=== PATIENT | female | born 1955 | race Caucasian/White ===

== ENCOUNTER → 2020-05-11 11:22 | Outpatient (CLI) | payer OTHER, SELFPAY ==
--- NOTE | ~2020-05-11 | MM_ITS ---
EXAMINATION: MM screening [facility] BI w shanda HISTORY: Screening TECHNIQUE: Craniocaudal and mediolateral oblique 3-D tomosynthesis images were obtained and synthetic 2-D images were generated. CAD analysis was submitted and interpreted. COMPARISON: 02/15/2019 BREAST PARENCHYMAL COMPOSITION: Breast composed of scattered areas of fibroglandular density FINDINGS: . Bilateral breast asymmetries are stable. There is no evidence of suspicious mass, calcifi cation, or architectural distortion to suggest malignancy in either breast. There has been no suspici ous interval change. IMPRESSION: 1. No mammographic evidence of malignancy. 2. Recommend routine screening mammography in one year. BI-RADS Category 2: Benign finding(s). Reviewed, dictated and finalized at location A.
== END ==
PROVIDERS: Visit Provider Nurse Practitioner
DX: Z12.31 Encounter for screening mammogram for malignant neoplasm of breast (principal)
CPT/HCPCS: 77063; 77067

== ENCOUNTER 2020-05-11 16:03 | Outpatient (CLI) | payer OTHER, SELFPAY | END 2020-05-11 16:04 | disposition home or self-care (01) | LOC: ANHCOVIDVC 16:03 | DX: Z23 Encounter for immunization (principal) | CPT/HCPCS: 0001A; 91300 ==

== ENCOUNTER 2020-06-01 16:05 | Outpatient (CLI) | payer OTHER, SELFPAY | END 2020-06-01 16:06 | disposition home or self-care (01) | LOC: ANHCOVIDVC 16:05 | DX: Z23 Encounter for immunization (principal) | CPT/HCPCS: 0002A; 91300 ==

== ENCOUNTER → 2020-12-25 02:41 | Outpatient (CLI) | payer OTHER, MEDICARE, SELFPAY ==
[2020-12-25 17:01] LABS: SARS-CoV-2 RNA PCR Negative
== END ==
PROVIDERS: PCP Internal Medicine; Visit Provider Nurse Practitioner
DX: R68.89 Other general symptoms and signs (principal); Z20.822 Contact with and (suspected) exposure to COVID-19
CPT/HCPCS: C9803; U0003; U0005

== ENCOUNTER 2021-01-27 14:30 | Outpatient (RCR) | payer OTHER, MEDICARE, SELFPAY ==
[2020-12-03 11:11] VITALS: BMI 34.4
== END 2021-02-01 10:46 | disposition home or self-care (01) ==
LOC: ANHDMC 14:30
PROVIDERS: PCP Internal Medicine; Visit Provider Internal Medicine
DX: E11.65 Type 2 diabetes mellitus with hyperglycemia (principal); Z71.3 Dietary counseling and surveillance; Z71.89 Other specified counseling
CPT/HCPCS: 97804; 99199; G0108; G0109

== ENCOUNTER 2021-04-08 07:13 | Outpatient (CLI) | payer OTHER, MEDICARE, SELFPAY ==
--- NOTE | ~2021-04-08 | US_ITS ---
EXAMINATION: US abdomen limited EXAM DATE: 04/08/2021 08:14 INDICATION: R74.8 - Abnormal levels of other serum enzymes . TECHNIQUE: Multiple grayscale and Doppler images of the abdomen right upper quadrant were obtained (b y a technologist who performed the scan) and subsequently reviewed. Comparison is made to prior exami nation from 03/16/2018. FINDINGS: The pancreatic head and body are normal in appearance. The pancreatic tail is not visualized. The l iver has normal echogenicity and contour. There are no focal liver lesions identified. There is no evidence of intrahepatic biliary duct dilation. Portal venous flow was seen in the hepatopedal, nor mal direction and has normal Doppler waveform. No right-sided hydronephrosis. Common bile duct measures 5 mm, which is normal. The gallbladder wall is normal in thickness, with ex pected amount of distention. No sonographic evidence of pericholecystic fluid. There is echogenic d ebris within dependent aspect of gallbladder. Technologist performing exam reports patient did not d emonstrate sonographic Meeks's sign. Please note that this sign is less reliable in patients who altamirano ve received pain medication. IMPRESSION: 1. Small amount of gallbladder debris. Reviewed, dictated and finalized at location B. ORT COORDINATOR
== END 2021-04-08 07:14 | disposition home or self-care (01) ==
LOC: ANHIMG 07:18
PROVIDERS: PCP Internal Medicine; Visit Provider Nurse Practitioner
DX: R74.8 Abnormal levels of other serum enzymes (principal)
CPT/HCPCS: 76705

== ENCOUNTER 2021-04-26 09:13 | Outpatient (RCR) | payer OTHER, MEDICARE, SELFPAY | END 2021-04-26 10:17 | disposition home or self-care (01) | LOC: ANHDMC 09:13 | PROVIDERS: PCP Internal Medicine; Visit Provider Internal Medicine | DX: E11.65 Type 2 diabetes mellitus with hyperglycemia (principal); Z71.89 Other specified counseling | CPT/HCPCS: G0108 ==

== ENCOUNTER → 2021-05-13 09:56 | Outpatient (CLI) | payer OTHER, MEDICARE, SELFPAY ==
--- NOTE | ~2021-05-13 | MM_ITS ---
EXAMINATION: MM screening [facility] BI w shanda HISTORY: Screening mammogram, family history of breast cancer in her sister. TECHNIQUE: Craniocaudal and mediolateral oblique 3-D tomosynthesis images were obtained and synthetic 2-D images were generated. CAD analysis was submitted and interpreted. COMPARISON: 05/11/2020, 02/15/2019 BREAST PARENCHYMAL COMPOSITION: There are scattered areas of fibroglandular density. FINDINGS: There is no suspicious mass, calcification, or architectural distortion to suggest malignan cy in either breast. There has been no suspicious interval change. IMPRESSION: 1. No mammographic evidence of malignancy. 2. Recommend routine screening mammography in one year. BI-RADS Category 1: Negative Reviewed, dictated and finalized at location A.
--- NOTE | ~2021-05-13 | DEXA_ITS ---
Bone Density Report Name: NAHOMY LOZADA Age: 65 Sex: Female Ethnicity: White Date of : 1955 Indication: osteopenia; monitoring treatment; parental hip fracture; height loss; hysterectomy; postmenopausal Referring Provider: Cesar, Annette Study: Bone densitometry was performed. Exam Date: May 13, 2021 Accession number: [id number] Bone Density: Region BMD T-score Z-score Classification AP Spine (L1-L4) 0.870 -1.6 0.3 Osteopenia Femoral Neck (Left) 0.663 -1.7 -0.1 Osteopenia Total Hip (Left) 0.732 -1.7 -0.4 Osteopenia Femoral Neck (Right) 0.675 -1.6 0.0 Osteopenia Total Hip (Right) 0.751 -1.6 -0.2 Osteopenia Total Hip Mean 0.742 -1.7 -0.3 Osteopenia World Health Organization criteria for BMD impression classify patients as: Normal (T-score at or above -1.0), Osteopenia (T-score between -1.0 and -2.5), or Osteoporosis (T-score at or below -2.5). 10-year Fracture Risk: FRAX not reported because: Treated for osteoporosis Previous Exams: Region Exam Age BMD T-score BMD Change BMD Change Date g/cm2 vs Baseline vs Previous AP Spine(L1-L4) 05/13/2021 65 0.870 -1.6 -0.002 -0.002 02/15/2019 63 0.871 -1.6 Total Hip(Left) 05/13/2021 65 0.732 -1.7 -0.055* -0.055* 02/15/2019 63 0.787 -1.3 Total Hip(Right) 05/13/2021 65 0.751 -1.6 0.014 0.014 02/15/2019 63 0.738 -1.7 *Denotes significance at 95% confidence level, LSC for AP Spine = 0.022 g/cm2, LSC for Total Hip = 0.027 g/cm2 Clinical Information Provided by Patient: Parent has had a hip fracture Is being treated for osteoporosis Has used the following medications: Boniva (i.e. ibandronate), Vitamin D, Calcium, MULTIVITAMIN Has the following medical conditions: Hysterectomy Patient maximum height was 62.0 Menopause Age: 47 Drinks caffeinated beverages Onset of menses at age 10 Number of children 5 Impression: The patient has low bone mass, based on the Left Total Hip T-score. The patient has risk factors, including: parental hip fracture. The BMD for the Total Hip(Left) decreased, changing by -0.055 since the last DXA exam. Discussion: SIGNIFICANT BONE LOSS OBSERVED. Adherence to therapy (including calcium and vitamin D intake) should be assessed. If compliance is not a factor, review management and exclusion of secondary causes of bone loss. It is important to ask patients whether they are taking their medications and to e
== END ==
PROVIDERS: PCP Internal Medicine; Visit Provider Nurse Practitioner
DX: Z12.31 Encounter for screening mammogram for malignant neoplasm of breast (principal); M85.88 Other specified disorders of bone density and structure, other site; M85.852 Other specified disorders of bone density and structure, left thigh; M85.851 Other specified disorders of bone density and structure, right thigh
CPT/HCPCS: 77063; 77067; 77080

== ENCOUNTER 2021-06-10 08:34 | Outpatient (CLI) | payer OTHER, MEDICARE, SELFPAY ==
[2021-06-01 15:43] VITALS: BMI 31.2
--- NOTE | 2021-06-01 15:49 | PC.NURSE ---
Pre Radiology instructions Report to the Outpatient Waiting Room, entrance under the green pavilion located off [facility], at time __0830 on date __06/10/21 . Procedure Time: _1030 . One visitor will be allowed to accompany the patient into the hospital. The visitor will be instructed to remain with patient at all times or leave the building. We will allow the visitor to come back to the postoperative area when patient is ready. You and your visitor will be asked a series of questions to screen for COVID 19 for your protection. A mask is required within the hospital. Pre-procedure COVID Testing Requirements: No COVID Test needed if: (proof is required; if not received patient will have Rapid Test prior to entry)- Patient has received COVID Vaccine at least 14 days prior to procedure date or- Patient has positive COVID test result within last 90 days of procedure date. COVID Test needed if above criteria is not met If not COVID vaccinated a COVID test must be conducted within 72 hours of surgery and patient is asked to isolate self from time of testing until procedure. You will go to the [facility] for your COVID testing. The [facility] is located at the corner of [address] [facility]. You will only be called if COVID results are positive and your surgeon may reschedule your elective procedure date Patients are to have no food or drink 6 hours prior to procedure time/0430 Driving will be restricted after the procedure, you must have a person to drive you home. Labs will be drawn in preop area and once reviewed, you will be taken to radiology area for procedure. When the procedure is completed, you will be taken to outpatient where you will be monitored for several hours. You may have one visitor in this area. Other than holding anti-coagulants, patient may take other medication(s) as scheduled. Prior to your appointment date patients are instructed to hold anti-coagulants after discussing with ordering provider to stop. If unable to discontinue anti-coagulants please notify radiologist. No aspirin or warfarin (Coumadin) for 7 days prior to the procedure. No clopidogrel (Plavix), ticagrelor (Brilinta), prasugrel (Effient) or dabigatran (Pradaxa) for 5 days prior to the procedure. No rivaroxaban (Xarelto), apixaban (Eliquis), dipyridamole (Aggrenox or Persantine) or cilostazol (Pletal) for 2 days prior to the procedure. Medications to discontinue per physician: ____NONE Date to take last dose: Please leave all valuables, including medications, at home the day of procedure. The hospital will not accept responsibility for valuables. Wear comfortable, loose fitting clothing. Follow any additional instructions given to you from ordering provider. Telephone instructions given to __PATIENT and asked if any additional questions and then verbalized understanding. Patient advised to call scheduling provider office or registration scheduling [phone] if any additional questions.
[2021-06-10] VITALS (11 sets, daily range): BP systolic 112–131; BP diastolic 53–69; PULSE 62–81; RESP 16–20; TEMP 36.5; O2SAT 93–97
--- NOTE | ~2021-06-10 | US_ITS ---
EXAMINATION: US biopsy liver DATE: 06/10/2021 11:40 INDICATION: Abnormal levels of other serum enzymes. TECHNIQUE: The procedure including the risks, benefits, and alternatives was discussed with the patie nt. Risks discussed included bleeding and infection. The patient understood the risks and agreed to p roceed. The skin overlying the left hepatic lobe was prepped and draped in usual sterile fashion. An esthetic was administered with 1% lidocaine subcutaneously. An 18 gauge core biopsy needle was then used to obtain 3 core biopsy specimens under continuous sonographic guidance. The entry site was manuel andres and dressed. There were no immediate complications. FINDINGS: Ultrasound images demonstrate the needle in left hepatic lobe. IMPRESSION: 1. Ultrasound-guided random core needle biopsy of the liver. Reviewed, dictated and finalized at location A.
[2021-06-10 09:55] LABS: Prothrombin Time 12.8 Seconds (11.1-14.7)
== END 2021-06-10 15:00 | disposition home or self-care (01) ==
PROVIDERS: PCP Internal Medicine; Referring Provider Nurse Practitioner Family; Visit Provider Radiology Diagnostic Radiology
PROC: BF45ZZZ Ultrasonography of Liver (ICD-10-PCS; CPT 47000; principal; 2021-06-10 10:30)
DX: R74.8 Abnormal levels of other serum enzymes (principal); R76.8 Other specified abnormal immunological findings in serum
CPT/HCPCS: 36415; 47000; 76942; 85610; 88307; 88312; 88313

== ENCOUNTER 2021-07-07 00:32 | Day surgery (SDC) | payer OTHER, MEDICARE, SELFPAY ==
[2021-06-17 14:37] VITALS: BMI 31.2
[2021-07-07 08:21] LABS: Glucose Point of Care 118 mg/dl (65-105)
[2021-07-07 08:23] VITALS: BP 142/85; PULSE 109; RESP 16; TEMP 36.2; O2SAT 98
[2021-07-07] MEDS: LACTATED RINGERS 1,000 ML 150 ML IV CONT (08:28)
--- NOTE | 2021-07-07 09:20 | WPDANESEPPF ---
Anes - Initial Pre Proc Eval Procedure: Operation Date: 07/07/21 09:30 Proposed Procedures p Screening Colonoscopy - Wil Weir MD Date/Time: 07/07/21 09:20 Surgeon: Wil Weir MD Pre Op Diagnosis: family hx of colon ca Patient Data Age: 66 Gender: F Height: 1.55 m Weight: 72 kg Last Vital Signs Temp 97.2 F L 07/07/21 08:23 Pulse 109 H 07/07/21 08:23 Resp 16 07/07/21 08:23 BP 142/85 H 07/07/21 08:23 Pulse Ox 98 07/07/21 08:23 Allergies Allergy/AdvReac Type Severity Reaction Status Date / Time No Known Allergies Allergy Mild Verified 07/07/21 08:22 Home Medications Medication Instructions Recorded Confirmed Type multivitamin 1 tablet PO DAILY 03/19/20 07/07/21 History blood sugar diagnostic #100 ea 12/02/20 05/14/21 Rx lancets 30 gauge #100 ea 12/02/20 05/14/21 Rx ezetimibe 10 mg tablet 10 mg PO DAILY #90 tablet 12/22/20 07/07/21 Rx cholecalciferol (vitamin D3) 1,250 1,250 mcg PO WEEKLY 03/30/21 07/07/21 History mcg (50,000 unit) tablet calcium carbonate-vitamin D3 1 tablet PO DAILY 06/01/21 07/07/21 History [Calcium + D] ibandronate [Boniva] 150 mg PO MONTHLY 06/01/21 07/07/21 History lisinopril 2.5 mg PO QAM 06/01/21 07/07/21 History metoprolol succinate 25 mg PO QAM 06/01/21 07/07/21 History Laboratory Tests 07/07/21 08:19 POC Capillary Glucose 118 mg/dl H mg/dl (65-105) Patient hx anesthesia problems: none Family hx anesthesia problems: none Results Review: All pre-operative results and documents have been reviewed as part of the pre-operative evaluation. [facility] Past Medical History Medical History (Updated 06/23/21 @ 16:25 by Falguni Tao, WEATHERIZATION AND HOUSING INSPECTOR-C) Dyslipidemia Elevated antinuclear antibody (SISI) level Essential hypertension Hypersomnia Palpitations with regular cardiac rhythm Takotsubo cardiomyopathy Surgical History Surgical History Hx of hysterectomy 2004 Family History Family History Father Family history of Alzheimer's disease Cancer Social History Social History Smoking packs per day: 1 Smoking cigarettes per day: 20.0 Years smoked: 22 Smoking pack-years: 22.00 Smoking status: Former smoker Tobacco type: cigarettes Alcohol intake: current Drinks per week: 1 Alcohol use details: occasional wine or ani Substance use: never Substance use type: does not use Living arrangements: with family Additional occupation/education comments: Works at [employer] Gender identity (if verbalized by the patient): Female Spiritual care concerns: No Anes - Eval Final PreProcedure Day of Procedure 07/07/21 09:20 Patient weight: obese Heart: regular rate and rhythm Lungs: clear to auscultation Airway: Mallampati scale class II Neurological: alert and oriented Last oral intake: >/= 8 hours ASA classification: III Emergent: no Anesthetic plan: proceed Anesthesia type and monitoring: general GIVS and standard monitoring Results Review: All pre-operative results and documents have been reviewed as part of the pre-operative evaluation. Informed Consent: The patient's anesthetic plan and its attendant risks and benefits were discussed with the patient/family/POA. Questions were solicited and answers provided to the satisfaction of the patient/family/POA.
--- NOTE | 2021-07-07 09:23 | PM.HPGS ---
History of Present Illness History of Present Illness Consent: Risks, benefits, and alternatives have been discussed and questions answered. Patient agrees to proceed with procedure. Chief complaint: family hx of colon ca Narrative: Julienne Davis is a 66 year old female here for first colonoscopy, father had colon cancer Review of Systems Constitutional: Constitutional: Denies headache(s) and Denies weakness Eyes: Eyes: Denies blurry vision ENT: Reports Normal hearing present, Denies headache(s) and Denies neck pain Cardiovascular: Cardiovascular: Denies chest pain and Denies dyspnea Respiratory: Respiratory: Denies dyspnea Gastrointestinal: Gastrointestinal: Reports no additional gastrointestinal complaints Genitourinary: Genitourinary: Denies dysuria Musculoskeletal: Musculoskeletal: Denies neck pain Integumentary/Breasts: Skin/Breast: Denies dry skin Neurologic: Reports Normal hearing present, Denies headache(s) and Denies weakness Psychiatric: Psychiatric: Denies anxiety Endocrine: Endocrine: Denies change in body appearance Hematologic/Lymphatic: Hematologic/Lymphatic: Denies easy bleeding Allergic/Immunologic: Allergic/Immunologic: Denies urticaria PMF Past Medical History Medical History (Updated 07/07/21 @ 09:23 by Wil Weir MD) Dyslipidemia Elevated antinuclear antibody (SISI) level Essential hypertension Family history of colon cancer in father Hypersomnia Palpitations with regular cardiac rhythm Takotsubo cardiomyopathy Surgical History Surgical History Hx of hysterectomy 2004 Family History Family History Father Family history of Alzheimer's disease Cancer Social History Social History Smoking packs per day: 1 Smoking cigarettes per day: 20.0 Years smoked: 22 Smoking pack-years: 22.00 Smoking status: Former smoker Tobacco type: cigarettes Alcohol intake: current Drinks per week: 1 Alcohol use details: occasional wine or ani Substance use: never Substance use type: does not use Living arrangements: with family Additional occupation/education comments: Works at [employer] Gender identity (if verbalized by the patient): Female Spiritual care concerns: No Meds Home Medications and Allergies Home Medications Medication Instructions Recorded Confirmed Type multivitamin 1 tablet PO DAILY 03/19/20 07/07/21 History blood sugar diagnostic #100 ea 12/02/20 05/14/21 Rx lancets 30 gauge #100 ea 12/02/20 05/14/21 Rx ezetimibe 10 mg tablet 10 mg PO DAILY #90 tablet 12/22/20 07/07/21 Rx cholecalciferol (vitamin D3) 1,250 1,250 mcg PO WEEKLY 03/30/21 07/07/21 History mcg (50,000 unit) tablet calcium carbonate-vitamin D3 1 tablet PO DAILY 06/01/21 07/07/21 History [Calcium + D] ibandronate [Boniva] 150 mg PO MONTHLY 06/01/21 07/07/21 History lisinopril 2.5 mg PO QAM 06/01/21 07/07/21 History metoprolol succinate 25 mg PO QAM 06/01/21 07/07/21 History Allergies Allergy/AdvReac Type Severity Reaction Status Date / Time No Known Allergies Allergy Mild Verified 07/07/21 08:22 Vital Signs Vital Signs - 24 hr 07/07/21 08:23 Temperature 97.2 F L Pulse Rate 109 H Respiratory Rate 16 Blood Pressure 142/85 H Pulse Oximetry 98 Exam Const: General: comfortable and no acute distress HENMT: General nose exam: Normal nares present Eyes: General: appearance normal, both eyes and all related structures Neck: Neck: no JVD Resp: Auscultation: clear to auscultation bilaterally Cardio: Rate: regular rate Rhythm: regular rhythm GI: Inspection: non-distended GI Palp: Yes Soft to palpation Skin: General skin exam: normal color Neuro: General: gait normal Speech: normal speech Extrem: General: normal to inspection Psych:
[2021-07-07 09:40] VITALS: BP 104/63; PULSE 85; RESP 16; O2SAT 96
[2021-07-07 09:50] VITALS: BP 121/78; PULSE 94; RESP 21; O2SAT 96
[2021-07-07 10:00] VITALS: BP 120/77; PULSE 95; RESP 21; O2SAT 96
== END 2021-07-07 10:10 | disposition home or self-care (01) ==
PROVIDERS: PCP Internal Medicine; Visit Provider Internal Medicine Gastroenterology
PROC: 0DJD8ZZ Inspection of Lower Intestinal Tract, Via Natural or Artificial Opening Endoscopic (ICD-10-PCS; CPT 45378; principal; 2021-07-07 09:30)
DX: Z12.11 Encounter for screening for malignant neoplasm of colon (principal); K64.8 Other hemorrhoids; Z80.0 Family history of malignant neoplasm of digestive organs; I10 Essential (primary) hypertension; E78.5 Hyperlipidemia, unspecified; I51.81 Takotsubo syndrome; Z87.891 Personal history of nicotine dependence; E66.9 Obesity, unspecified; Z68.30 Body mass index [BMI] 30.0-30.9, adult
CPT/HCPCS: 45378; 82948; J2704; J7120

== ENCOUNTER → 2022-06-06 10:22 | Outpatient (CLI) | payer OTHER, MEDICARE, SELFPAY ==
--- NOTE | ~2022-06-06 | MM_ITS ---
EXAMINATION: MM screening [facility] BI w shanda HISTORY: Screening mammogram TECHNIQUE: Craniocaudal and mediolateral oblique 3-D tomosynthesis images were obtained and synthetic 2-D images were generated. CAD analysis was submitted and interpreted. COMPARISON: 05/13/2020, 05/11/2020, 02/15/2019 bilateral screening mammogram examinations BREAST PARENCHYMAL COMPOSITION: There are scattered areas of fibroglandular density. FINDINGS: Stable fibroglandular asymmetry. Comment low-density approximately 5 x 7 mm opacity is noted in the mid to upper outer left breast, wi th small calcification, likely a small minimally calcified fibroadenoma. This has diminished mildly i n size since 05/13/2021 at which time it measured approximately 6 x 8.4 mm. There is no evidence of suspicious mass, calcification, or architectural distortion to suggest malign carlee in either breast. There has been no suspicious interval change. IMPRESSION: 1. No mammographic evidence of malignancy. 2. Recommend routine screening mammography in one year. BI-RADS Category 2: Benign finding(s). Reviewed, dictated and finalized at location A.
== END ==
PROVIDERS: PCP Internal Medicine; Visit Provider Nurse Practitioner
DX: Z12.31 Encounter for screening mammogram for malignant neoplasm of breast (principal)
CPT/HCPCS: 77063; 77067

== ENCOUNTER 2023-01-06 15:23 | Outpatient (CLI) | payer OTHER, MEDICARE, SELFPAY ==
--- NOTE | ~2023-01-06 | XR_ITS ---
EXAMINATION: XR foot LT min 3V DATE: 01/06/2023 15:45 INDICATION: Left foot injury and pain. TECHNIQUE: 4 views of left foot were obtained. COMPARISON: None. FINDINGS: Bone alignment is normal. No fracture. There is mild osteoarthritis of first metatarsophala ngeal joint and some of the interphalangeal joints. There are enthesophytes at the posterior and plan tar aspects of calcaneal tuberosity. IMPRESSION: 1. Mild polyarticular osteoarthritis. Reviewed, dictated and finalized at location E. LLING MACHINE OPERATOR
== END 2023-01-06 15:24 | disposition home or self-care (01) ==
PROVIDERS: PCP Nurse Practitioner Family; Visit Provider Nurse Practitioner Family
DX: S99.922A Unspecified injury of left foot, initial encounter (principal); X58.XXXA Exposure to other specified factors, initial encounter; M19.072 Primary osteoarthritis, left ankle and foot
CPT/HCPCS: 73630

== ENCOUNTER 2023-08-22 12:24 | Outpatient (CLI) | payer OTHER, MEDICARE, SELFPAY ==
--- NOTE | ~2023-08-22 | MM_ITS ---
EXAMINATION: MM screening [facility] BI w shanda HISTORY: Screening mammogram, family history of breast cancer in her sister. TECHNIQUE: Craniocaudal and mediolateral oblique 3-D tomosynthesis images were obtained and synthetic 2-D images were generated. CAD analysis was submitted and interpreted. COMPARISON: 06/06/2022, 05/13/2021, 05/11/2020 BREAST PARENCHYMAL COMPOSITION:Not Dense. There are scattered areas of fibroglandular density. FINDINGS: Stable bilateral breast nodules. No suspicious mass, calcification, or architectural distor tion are identified in either breast to suggest malignancy. There has been no suspicious interval jhon nge. IMPRESSION: No mammographic evidence of malignancy. Recommend routine screening mammography in one year. BI-RADS Category 2: Benign finding(s). Reviewed, dictated and finalized at [facility].
== END 2023-08-22 12:25 ==
LOC: MICIMG 12:27
PROVIDERS: PCP Nurse Practitioner; Visit Provider Nurse Practitioner
DX: Z12.31 Encounter for screening mammogram for malignant neoplasm of breast (principal); M85.88 Other specified disorders of bone density and structure, other site
CPT/HCPCS: 77063; 77067

== ENCOUNTER 2023-11-29 12:40 | Outpatient (CLI) | payer MEDICARE, OTHER, SELFPAY ==
--- NOTE | ~2023-11-29 | CT_ITS ---
CT of the Abdomen and Pelvis: Indication: Abdominal pain Technique: 2.5 mm axial scans were obtained through the abdomen and pelvis following intravenous adm inistration of 100 cc of Omnipaque 350. Dose reduction technique was used on this scan by utilizing a utomated exposure control and iterative reconstruction technique. The dose-length product (DLP) was 6 50.37 mGy-cm. Findings: Scans through the lung bases are unremarkable. The liver, spleen, pancreas, gallbladder, adrenals and kidneys are within normal limits. There are at herosclerotic calcifications of the aorta. No lymphadenopathy. No bowel obstruction or bowel wall thickening. There is no evidence to suggest acute appendicitis. Images through the pelvis were performed. Urinary bladder unremarkable. No pelvic mass seen. Status p ost hysterectomy. No ascites. Impression: No significant abnormalities seen. Reviewed, dictated and finalized at location . Impression: No significant abnormalities seen.
[2023-11-29 13:07] LABS: Estimated Glomerular Filt Rate > 60
== END 2023-11-29 12:41 | disposition home or self-care (01) ==
LOC: MICIMG 12:41
PROVIDERS: PCP Nurse Practitioner Family; Visit Provider Nurse Practitioner Family
DX: R10.9 Unspecified abdominal pain (principal)
CPT/HCPCS: 74177; Q9967

== ENCOUNTER 2024-11-11 13:30 | Outpatient (CLI) | payer OTHER, MEDICARE, SELFPAY ==
--- NOTE | ~2024-11-11 | DEXA_ITS ---
Bone Density Report Name: NAHOMY LOZADA Age: 69 Sex: Female Ethnicity: White Date of : 1955 Indication: osteopenia; parental hip fracture; history of glucocorticoids; hysterectomy; Referring Provider: HARPER, SALLY Study: Bone densitometry was performed. Exam Date: November 11, 2024 Accession number: [id number] Bone Density: Region BMD T-score Z-score Classification AP Spine(L1-L4) 0.753 -2.7 -0.5 Osteoporosis Femoral Neck (Left) 0.547 -2.7 -0.9 Osteoporosis Total Hip (Left) 0.701 -2.0 -0.5 Osteopenia Femoral Neck (Right) 0.651 -1.8 0.0 Osteopenia Total Hip (Right) 0.695 -2.0 -0.5 Osteopenia Total Hip Mean 0.698 -2.0 -0.5 Osteopenia World Health Organization criteria for BMD impression classify patients as: Normal (T-score at or above -1.0), Osteopenia (T-score between -1.0 and -2.5), or Osteoporosis (T-score at or below -2.5). 10-year Fracture Risk: FRAX not reported because: Some T-score for Spine Total or Hip Total or Femoral Neck at or below -2.5 Previous Exams: -- Region Exam Age BMD T-score BMD Change BMD Change Date g/cm2 vs Baseline vs Previous -- AP Spine (L1-L4) 11/11/2024 69 0.753 -2.7 -13.6%* -13.5%* 05/13/2021 65 0.870 -1.6 -0.2% -0.2% 02/15/2019 63 0.871 -1.6 Total Hip(Left) 11/11/2024 69 0.701 -2.0 -11.0%* -4.3%* 05/13/2021 65 0.732 -1.7 -7.0%* -7.0%* 02/15/2019 63 0.787 -1.3 Total Hip(Right) 11/11/2024 69 0.695 -2.0 -5.7%* -7.4%* 05/13/2021 65 0.751 -1.6 1.8% 1.8% 02/15/2019 63 0.738 -1.7 -- *Denotes significance at 95% confidence level, LSC for AP Spine = 0.022 g/cm2, LSC for Total Hip = 0.027 g/cm2 Clinical Information Provided by Patient: Parent has had a hip fracture Has taken Glucocorticoids Has used the following medications: Boniva (i.e. ibandronate), Vitamin D, Calcium Has the following medical conditions: Hysterectomy Patient maximum height was 62 Menopause Age: 47 No regular weight bearing exercise Does not regularly consume dairy products Drinks caffeinated beverages Onset of menses at age 11 Number of children 5 Impression: The patient has osteoporosis, based on the Total Spine T-score. The patient has risk factors, including: parental hip fracture, history of glucocorticoid therapy. The BMD for the AP Spine (L1-L4) decreased, changing by -13.5% since the last DXA exam. The BMD for the Total Hip(Left) decreased, changing by -4.3% since the last DXA exam. The BMD for the Total Hip(Right) decreased, changing by -7.4% since the last DXA exam. Discussion: INCREASED RISK OF FRACTURE. BONE DENSITY IS UNDESIRABLY LOW AT ONE OR MORE SKELETAL SITES, CONSISTENT WITH POSTMENOPAUSAL OSTEOPOROSIS. This patient's lowest T-score meets the World Health Organization's (WHO) criteria for osteoporosis at one or more sites (T-score -2.5 or below). In untreated patients, the risk of osteoporotic fracture increases approximately two-fold for each 1.0 SD decrease in T-score. Low bone density is not the only risk factor for fracture; also consider factors such as patient's age, frailty or poor health, risk of falling, risk of injury, previous osteoporotic fracture, family history of osteoporosis, cigarette smoking, low body weight, etc. Not everyone with low bone mineral density has osteoporosis; osteomalacia and other metabolic bone disorders should also be considered. Patients who have osteoporosis should be evaluated for specific diseases and conditions (secondary causes) that may cause or contribute to bone loss. The [place] Association of Clinical Endocrinologists (AACE) and National Osteoporosis Foundation (NOF) recommend pharmacologic intervention for all postmenopausal women whose T-score is in this range. The patient should follow a healthful lifestyle (good nutrition with adequate calcium and vitamin D, and appropriate weight-bearing exercise). Follow-Up: Consider a repeat BMD and Vertebral Fracture Assessment (VFA) exam in 2 years or sooner if medically necessary, to reassess this patient's status. Reported by: ALEJO on 11/11/2024 2:25:00 PM. Reviewed, dictated and finalized at location A.
--- NOTE | ~2024-11-11 | MM_ITS ---
EXAMINATION: MM screening wendy BI w shanda HISTORY: Screening TECHNIQUE: Craniocaudal and mediolateral oblique 3-D tomosynthesis images were obtained and synthetic 2-D images were generated. CAD analysis was submitted and interpreted. COMPARISON: 06/06/2022 BREAST PARENCHYMAL COMPOSITION: Not Dense: The breasts are almost entirely fatty. FINDINGS: There is no evidence of suspicious mass, calcification, or architectural distortion to suggest malignancy. There has been no suspicious interval change. IMPRESSION: 1. No mammographic evidence of malignancy. Recommend routine screening mammography in one year. BI-RADS Category 2: Benign finding(s) Reviewed, dictated and finalized at location Q. IMPRESSION: 1. No mammographic evidence of malignancy. Recommend routine screening mammogra phy in one year. BI-RADS Category 2: Benign finding(s)
== END 2024-11-11 13:31 | disposition home or self-care (01) ==
PROVIDERS: PCP Nurse Practitioner Family
DX: Z12.31 Encounter for screening mammogram for malignant neoplasm of breast (principal); M85.88 Other specified disorders of bone density and structure, other site; Z78.0 Asymptomatic menopausal state; M81.0 Age-related osteoporosis without current pathological fracture; M85.852 Other specified disorders of bone density and structure, left thigh; M85.851 Other specified disorders of bone density and structure, right thigh
CPT/HCPCS: 77063; 77067; 77080

== ENCOUNTER 2025-01-20 09:04 | Outpatient (CLI) | payer OTHER, MEDICARE, SELFPAY ==
--- NOTE | ~2025-01-20 | US_ITS ---
US right upper quadrant Indication: R10.11 - Right upper quadrant pain Comparison: None Technique: King-scale and color Doppler images were obtained. Findings: LIVER: Unremarkable, liver contours intact, no lesions. Normal echogenicity. . GALLBLADDER/BILIARY: Unremarkable.No cholelithiais, wall thickening or pericholecystic fluid. No biliary dilatation. CBD 4 mm. [place] sign negative. PANCREAS: Pancreas limited by bowel gas. Right Kidney: The right kidney was not imaged. Impression: No acute abnormality. Reviewed, dictated and finalized at location P. NING DEVELOPER Impression: No acute abnormality.
== END 2025-01-20 09:05 | disposition home or self-care (01) ==
LOC: GOSHIMG 09:04
PROVIDERS: PCP Nurse Practitioner Family; Visit Provider Nurse Practitioner Family
DX: R10.11 Right upper quadrant pain (principal)
CPT/HCPCS: 76705

== ENCOUNTER 2025-01-21 00:41 | Day surgery (SDC) | payer OTHER, MEDICARE, SELFPAY ==
[2025-01-17 13:47] VITALS: BMI 30.3
[2025-01-21 07:38] VITALS: BP 96/71; PULSE 86; RESP 18; TEMP 36.1; O2SAT 94; BMI 30.3
[2025-01-21] MEDS: LACTATED RINGERS 1,000 ML 150 ML IV CONT (07:50)
--- NOTE | 2025-01-21 08:06 | WPDANESEPPF ---
Anes - Initial Pre Proc Eval Procedure: Operation Date: 01/21/25 08:30 Proposed Procedures p Esophagogastroduodenoscopy - Wil Weir MD Date/Time: 01/21/25 08:06 Surgeon: Wil Weir MD Pre Op Diagnosis: Gastro-esophageal reflux disease without esophagit Patient Data Age: 69 Gender: F Height: 1.57 m Weight: 75.3 kg Last Vital Signs Temp 97 F L 01/21/25 07:38 Pulse 86 01/21/25 07:38 Resp 18 01/21/25 07:38 BP 96/71 L 01/21/25 07:38 Pulse Ox 94 01/21/25 07:38 O2 Del Method Room Air 01/21/25 07:38 Allergies Allergy/AdvReac Type Severity Reaction Status Date / Time No Known Allergies Allergy Mild Verified 01/21/25 07:37 Home Medications ?Medication ?Instructions ?Recorded ?Confirmed ?Type multivitamin 1 tablet PO DAILY 03/19/20 01/21/25 History cholecalciferol (vitamin D3) 1,250 1,250 mcg PO WEEKLY 03/30/21 01/21/25 History mcg (50,000 unit) tablet ibandronate 150 mg tablet (Boniva) 150 mg PO MONTHLY 06/01/21 01/17/25 History blood sugar diagnostic (OneTouch #100 ea 04/28/22 01/13/25 Rx Verio test strips) lancets 30 gauge (OneTouch Delica #100 ea 04/28/22 01/13/25 Rx Lancets) fluticasone propionate 50 See Rx Instructions .Route 02/13/23 01/21/25 Rx mcg/actuation nasal .COMPLEX #48 grams spray,suspension naproxen 500 mg tablet 500 mg PO BID PRN pain 03/03/23 01/17/25 History ursodiol 500 mg tablet 600 mg PO BID 11/20/23 01/21/25 History lisinopril 2.5 mg tablet See Rx Instructions .Route 05/10/24 01/21/25 Rx .COMPLEX #90 tabs metoprolol succinate 25 mg See Rx Instructions .Route 05/10/24 01/21/25 Rx tablet,extended release 24 hr .COMPLEX #90 tabs famotidine 20 mg tablet (Pepcid) 20 mg PO DAILY PRN acid reflux #30 10/08/25 11/21/25 Rx tabs rosuvastatin 20 mg tablet See Rx Instructions .Route 12/04/24 01/21/25 Rx .COMPLEX #90 tabs seladelpar 10 mg capsule (Livdelzi) 10 mg PO DAILY 12/04/24 01/21/25 History calcium DAILY 01/13/25 01/13/25 History pantoprazole 40 mg tablet,delayed 40 mg PO BID #180 tabs 01/13/25 01/21/25 Rx release albuterol sulfate 90 mcg/actuation 2 inh inhalation Q4H PRN shortness 01/15/25 01/17/25 Rx aerosol inhaler (Ventolin HFA) of breath or wheezing #8.5 grams Patient hx anesthesia problems: none Family hx anesthesia problems: none Results Review: All pre-operative results and documents have been reviewed as part of the pre-operative evaluation. [facility] Past Medical History Medical History Elevated liver enzymes Autoimmune hepatitis Family history of colon cancer in father Elevated antinuclear antibody (SISI) level Dyslipidemia Essential hypertension Palpitations with regular cardiac rhythm Hypersomnia Takotsubo cardiomyopathy Surgical History Surgical History Hx of hysterectomy 2003 Family History Family History Father Family history of Alzheimer's disease Cancer Social History Social History Smoking packs per day: 1 Smoking cigarettes per day: 20.0 Years smoked: 22 Smoking pack-years: 22.00 Smoking status: Former smoker Tobacco type: cigarettes Smoking end date: 02/27/09 Alcohol intake: current Alcohol use details: occasionally, holidays, birthdays Substance use: never Substance use type: does not use Do You Feel Safe in your Home?: Yes Lack of Transportation: No Lack of Food: Never True Current Housing: I Have Housing Concerned About Future Housing: No Difficulty Paying Gas/Electric Bills: No Difficulty Paying for Meds: No Currently Unemployed: No Education: High School Diploma/GED Difficulty w/ Childcare or Family Care: No Living arrangements: with family Occupation/Education: retired Additional occupation/education comments: Works at [employer] Gender identity (if verbalized by the patient): Female Sexual Orientation (if Verbalized by the Patient): Straight or Heterosexual Spiritual care concerns: No Agree to blood products: Yes Anes - Eval Final PreProcedure Day of Procedure 01/21/25 08:06 Patient weight: obese Lungs: normal air movement Airway: Mallampati scale class II Neurological: alert and oriented Last oral intake: >/= 8 hours ASA classification: II Emergent: no Anesthetic plan: proceed Anesthesia type and monitoring: general GIVS and standard monitoring Results Review: All pre-operative results and documents have been reviewed as part of the pre-operative evaluation. Hyperlipidemia, ex smoker quit 2009, pt w hx of cardiomyopathy 2015, ECHO 2019 nml LVEF. Informed Consent: The patient's anesthetic plan and its attendant risks and benefits were discussed with the patient/family/POA. Questions were solicited and answers provided to the satisfaction of the patient/family/POA.
--- NOTE | 2025-01-21 08:18 | PM.HPGS ---
History of Present Illness History of Present Illness Consent: Risks, benefits, and alternatives have been discussed and questions answered. Patient agrees to proceed with procedure. Chief complaint: Gastro-esophageal reflux disease without esophagit Narrative: Julienne Sol is a 69 year old female here for first egd because gerd on ppi, also h/o pbc on ursodiol then livdelzi recently Review of Systems Review of Systems: All systems reviewed & are unremarkable except as noted in HPI and below PMFSH Past Medical History Medical History (Updated 01/21/25 @ 08:20 by Wil Weir MD) GERD (gastroesophageal reflux disease) Elevated liver enzymes Autoimmune hepatitis Family history of colon cancer in father Elevated antinuclear antibody (SISI) level Dyslipidemia Essential hypertension Palpitations with regular cardiac rhythm Hypersomnia Takotsubo cardiomyopathy Surgical History Surgical History Hx of hysterectomy 2003 Family History Family History Father Family history of Alzheimer's disease Cancer Social History Social History Smoking packs per day: 1 Smoking cigarettes per day: 20.0 Years smoked: 22 Smoking pack-years: 22.00 Smoking status: Former smoker Tobacco type: cigarettes Smoking end date: 02/27/09 Alcohol intake: current Alcohol use details: occasionally, holidays, birthdays Substance use: never Substance use type: does not use Do You Feel Safe in your Home?: Yes Lack of Transportation: No Lack of Food: Never True Current Housing: I Have Housing Concerned About Future Housing: No Difficulty Paying Gas/Electric Bills: No Difficulty Paying for Meds: No Currently Unemployed: No Education: High School Diploma/GED Difficulty w/ Childcare or Family Care: No Living arrangements: with family Occupation/Education: retired Additional occupation/education comments: Works at [employer] Gender identity (if verbalized by the patient): Female Sexual Orientation (if Verbalized by the Patient): Straight or Heterosexual Spiritual care concerns: No Agree to blood products: Yes Meds Home Medications and Allergies Home Medications ?Medication ?Instructions ?Recorded ?Confirmed ?Type multivitamin 1 tablet PO DAILY 03/19/20 01/21/25 History cholecalciferol (vitamin D3) 1,250 1,250 mcg PO WEEKLY 03/30/21 01/21/25 History mcg (50,000 unit) tablet ibandronate 150 mg tablet (Boniva) 150 mg PO MONTHLY 06/01/21 01/17/25 History [facility] 01/13/25 Rx Verio test strips) lancets 30 gauge (OneTouch Delica #100 ea 04/28/22 01/13/25 Rx Lancets) fluticasone propionate 50 See Rx Instructions .Route 02/13/23 01/21/25 Rx mcg/actuation nasal .COMPLEX #48 grams spray,suspension naproxen 500 mg tablet 500 mg PO BID PRN pain 03/03/23 01/17/25 History ursodiol 500 mg tablet 600 mg PO BID 11/20/23 01/21/25 History lisinopril 2.5 mg tablet See Rx Instructions .Route 05/10/24 01/21/25 Rx .COMPLEX #90 tabs metoprolol succinate 25 mg See Rx Instructions .Route 05/10/24 01/21/25 Rx tablet,extended release 24 hr .COMPLEX #90 tabs famotidine 20 mg tablet (Pepcid) 20 mg PO DAILY PRN acid reflux #30 12/04/24 01/17/25 Rx tabs rosuvastatin 20 mg tablet See Rx Instructions .Route 12/04/24 01/21/25 Rx .COMPLEX #90 tabs seladelpar 10 mg capsule (Livdelzi) 10 mg PO DAILY 12/04/24 01/21/25 History calcium DAILY 01/13/25 01/13/25 History pantoprazole 40 mg tablet,delayed 40 mg PO BID #180 tabs 01/13/25 01/21/25 Rx release albuterol sulfate 90 mcg/actuation 2 inh inhalation Q4H PRN shortness 01/15/25 01/17/25 Rx aerosol inhaler (Ventolin HFA) of breath or wheezing #8.5 grams Allergies Allergy/AdvReac Type Severity Reaction Status Date / Time No Known Allergies Allergy Mild Verified 01/21/25 07:37 Vital Signs Vital Signs - 24 hr 01/21/25 07:38 Temperature 97 F L Pulse Rate 86 Respiratory Rate 18 Blood Pressure 96/71 L Pulse Oximetry 94 Oxygen Delivery Room Air Exam Const: General: comfortable and no acute distress HENMT: Face/Nose/Sinus: Normal nares present Eyes: General: appearance normal, both eyes and all related structures Neck: Neck: no JVD Resp: Auscultation: clear to auscultation bilaterally Cardio: Rate: regular rate Rhythm: regular rhythm GI: Inspection: non-distended GI Palp: Yes Soft to palpation Skin: General skin exam: normal color Extrem: General: normal to inspection Psych: Mental Status: mental status grossly normal Assessment and Plan Assessment and plan (1) GERD (gastroesophageal reflux disease): Code(s): K21.9 - Gastro-esophageal reflux disease without esophagitis Status: Acute Assessment and Plan: egd
--- NOTE | 2025-01-21 08:23 | S_PTH ---
PATIENT: Julienne Sol LOC: [facility]#:[id number] AGE/SX: 69/F ROOM: RE01/21/[address]: Wil Weir MD : 1955 BED: DIS: 01/21/2025 SPEC #: [id number] RECD: 01/21/25 09:50 STATUS: ANKUR JEAN BAPTISTE #: [id number] ROBIN: 01/21/25 08:[address]: Wil Weir DEPT: [facility] Surgical RECD BY: Jose Flowers ENTERED: 01/21/25 09:50 SP TYPE: Surgical OTHR DR: Radha Rudd APRN Tissues: A - Gastric Biopsy B - Esophageal Biopsy Procedures: Hematoxylin and Eosin Stain Gross and Microscopic Level 4
[2025-01-21 08:27] VITALS: BP 121/55; PULSE 82; RESP 20; O2SAT 99
[2025-01-21 08:37] VITALS: BP 105/50; PULSE 72; RESP 18; O2SAT 99
[2025-01-21 08:47] VITALS: BP 121/47; PULSE 85; RESP 24; O2SAT 97
== END 2025-01-21 08:52 | disposition home or self-care (01) ==
PROVIDERS: PCP Nurse Practitioner Family; Referring Provider Nurse Practitioner Family; Visit Provider Internal Medicine Gastroenterology
PROC: 0DJ08ZZ Inspection of Upper Intestinal Tract, Via Natural or Artificial Opening Endoscopic (ICD-10-PCS; CPT 43239; principal; 2025-01-21 08:30)
DX: K21.9 Gastro-esophageal reflux disease without esophagitis (principal); E78.5 Hyperlipidemia, unspecified; I10 Essential (primary) hypertension; R00.2 Palpitations; I51.81 Takotsubo syndrome; K75.4 Autoimmune hepatitis; E66.9 Obesity, unspecified; Z68.30 Body mass index [BMI] 30.0-30.9, adult; Z79.83 Long term (current) use of bisphosphonates; Z79.1 Long term (current) use of non-steroidal anti-inflammatories (NSAID); Z79.51 Long term (current) use of inhaled steroids; Z98.890 Other specified postprocedural states; Z87.891 Personal history of nicotine dependence; Z80.0 Family history of malignant neoplasm of digestive organs
CPT/HCPCS: 43239; 82948; 88305; J2003; J2704; J7120